=== PATIENT | female | born 1995 | race Two or more races ===

== ENCOUNTER 2025-08-20 09:39 | Outpatient (REF) | payer OTHER, SELFPAY ==
[2025-08-20 14:39] LABS: MANUAL DIFF FLAG NO
[2025-08-20 15:03] LABS: Hematocrit 36.9 % (37.0-47.0); Hemoglobin 12.1 g/dl (12.0-16.0); Imm Gran Abs Auto 0.02 X10*3/uL (0.00-0.03); Imm Gran Pct Auto 0.2 % (0.0-0.4); Lymphocytes Absolute Auto 2.5 X10*3/uL (1.2-4.9); Mean Corpuscular HGB Conc 32.8 g/dl (31.0-35.0); Mean Corpuscular Hemoglobin 29.3 pg (27.0-33.0); Mean Corpuscular Volume 89.3 fL (80.0-98.0); NRBC Abs Auto 0.000 X10*3/uL (0.0-0.012); NRBC Pct Auto 0.0 /100WBC (0.0-0.2); Platelet Count 492 X10*3/uL (160-400); Red Blood Count 4.13 X10*6/uL (4.20-5.50); White Blood Count 8.4 X10*3/uL (4.8-10.8)
[2025-08-20 15:20] LABS: Anion Gap 11 (12-20); Blood Urea Nitrogen 15 mg/dL (9-16); Calcium 9.0 mg/dL (8.4-10.2); Carbon Dioxide 26 mmol/L (22-29); Chloride 105 mmol/L (96-108); Cholesterol 154 mg/dL (<200); Estimated Glomerular Filt Rate > 60; HDL Cholesterol 49 mg/dL (>40); Potassium 4.2 mmol/L (3.3-5.1); Sodium 138 mmol/L (135-145); Triglycerides 101 mg/dL (<150)
[2025-08-21 13:10] LABS: HIV Num 1 0.04 S/CO (0.00-0.99); ~HepC Num1 0.09 S/CO (0.00-0.79); ~Hepatitis C Antibody Nonreactive (Nonreactive)
== END 2025-08-20 09:40 | disposition home or self-care (01) ==
LOC: HO.CHCLDS 09:39
DX: Z11.3 Encounter for screening for infections with a predominantly sexual mode of transmission (principal); Z11.4 Encounter for screening for human immunodeficiency virus [HIV]; Z11.59 Encounter for screening for other viral diseases; Z76.89 Persons encountering health services in other specified circumstances
CPT/HCPCS: 36415; 80048; 80061; 84443; 85025; 86592; 86803; 87389

== ENCOUNTER 2025-08-23 12:19 | Outpatient (REF) | payer OTHER, SELFPAY ==
--- NOTE | ~2025-08-23 | US_ITS ---
EXAMINATION: US PELVIS CLINICAL INFORMATION: AUB COMPARISON: None available. TECHNIQUE: Ultrasound of the pelvis is performed using both transabdominal and transvaginal transducers along with Doppler. Transvaginal imaging is performed due to inadequate visualization transabdominally. FINDINGS: Uterus: The uterus is anteverted and measures 9 x 4 x 4 cm. Volume: 106 cc. The double wall endometrial thickness is 14 mm. Normal echotexture. No solid or cystic lesion in the myometrium. Cervix is normal and endocervical canal is closed Adnexa: The ovaries are identified with flow on color Doppler interrogation.. No free fluid in the cul-de-sac. Right ovary measures 4 x 3 x 3 cm. Volume: 18 cc. Scattered follicles. There is a 1.5 cm mixed isoechoic abnormality. No flow on color Doppler interrogation. Left ovary measures 4 x 2 x 2 cm. Volume: 9 cc. Scattered follicles. US/US pelvic and transvaginal IMPRESSION: No ovarian torsion. No uterine fibroid. 14 mm thickened endometrial stripe. Correlated with menstrual cycle. 1.5 cm complex cyst, right ovary. Electronically signed by: Alexei Moreno MD 08/23/2025 01:12 PM EDT
--- OUTSIDE RECORDS SUMMARY | 2025-08-23 15:30 | XMS_ITS | Encounter Summary ---
Author Organization [employer] Address [address] [place] [address] 7t [place] [address] Care Team Providers Care Male Infertility Specialist Name Role Phone Mike Duff CNP Primary Care Provider [phone] Encounter Details Date Type Department Care Team ([facility] st Contact Info) Description 08/21/2025 Orders Only [facility] [address] [place], [place] [phone] Mike Duff CNP [address] [place], [place] [phone] Abnormal uterine bleeding (Primary Dx) Social History Tobacco Use Types Packs/Day Years Used Date Smoking Tobacco: Never Smokeless Tobacco: Never Alcohol Use Standard Drinks/Week Comments Never 0 (1 standard drink = 0.6 oz pur e alcohol) Depression Answer Date Recorded Patient Health Questionnaire-9 Score 1 07/13/2025 Patient Health Questionnaire-9 Score 1 07/13/2025 Last PHQ-9: Questionnaire Data Not on file 0 07/13/2025 Housing Stability Answer Date Recorded What is your housing situation today? I do not have housing (Staying with others, in a hotel, in a prison, living outside on the street, on a beach, in a car, or in a park 07/06/[address] you li ve. Do you have problems with any of the following? None of the above 07/06/2025 Food Insecurity Answer Date Recorded Within the past 12 months, y ou worried that your food would run out before you got money to buy more: Sometimes True 2024 Within the past 12 months,th e food you bought just didn't last and you didn't have enough money to get more: Sometimes True 07/06/2025 Transportation Answer Date Recorded In the past 12 months, has l ack of transportation kept you from medical appts, meetings, work or from getting things needed for daily living? No 07/06/2025 Utilities Answer Date Recorded In the past 12 months, has t he electric, gas, oil or water company threatened to shut off services in your home? No 07/06/2025 Depression Answer Date Recorded Patient Health Questionnaire-2 Score 0 07/13/2025 Internet Access Answer Date Recorded Internet Access Q1 Yes 07/06/2025 Internet Access Q2 Not on file 07/06/2025 Comments Unknown Sex and Gender Information Value Date Recorded Sex Assigned at Female 08/31/2022 10:39 AM EDT Legal Sex Female 10:39 AM EDT Gender Identity Female 08/31/2022 10:39 AM EDT Sexual Orientation Straight 08/31/2022 10 :39 AM EDT documented as of this encounter Plan of Treatment Upcoming Encounters Date Type Department Care Team (Late st Contact Info) Description 09/21/2025 8:45 AM EST Office Visit [facility]ULT DENTAL [address] [place] [address] Jaime Bo Scheduled Orders Name Type Priority Associated Diagnoses Orde r Schedule Iron And Total Iron Binding Capacity Lab Routine Abnormal uterine bleeding Expected: 08/21/2025, Expires: 08/21/2026 Ferritin Lab Routine Abnormal uterine bleeding Expected: 08/21/2025, Expires: 08/21/2026 documented as of this encounter Visit Diagnoses Diagnosis Abnormal uterine bleeding- Primary Unspecified disorder of menstruation and other abnormal bleeding from female genital tract documented in this encounter Additional Health Concerns Assessment Noted Time PHQ-9 Depression Total Score: 1 07/13/20 11:56 AM EDT documented as of this encounter Care Teams Male Infertility Specialist Relationship Specialty Start Date End Date Mike Duff CNP PCP - General Family Medicine 07/13/25 documented as of this encounter
--- OUTSIDE RECORDS SUMMARY | 2025-08-23 15:30 | XMS_ITS | Clinical Summary ---
Author Organization [employer] Address [address] [facility] 7t [place] [address] Care Team Providers Care Lever Operator Name Role Phone Mike Duff CNP Primary Care Provider [phone] Allergies No known active allergies Medications benzonatate (Tessalon) 200 MG capsule Take 200 mg by mouth every 8 (eight) hours if needed. 03/24/2019 Active lidocaine (Xylocaine) 2 % solution Gargle every eight hours as needed for sore throat. Do not use for more than 1 week. 03/24/2019 Active Active Problems No known active problems Encounters Date Type Department Care Team Description 08/21/2025 Results Follow-Up [facility] [address] [place] [address] Mike Duff CNP Lipid Panel, Standard, CBC auto differential, Basic Metabolic Panel, TSH W/Reflex to FT4 08/21/2025 Orders Only [facility] [address] [place] [address] Mike Duff CNP Abnormal uterine bleeding (Primary Dx) 08/15/2025 2:30 PM EDT Office Visit [facility] ADULT [facility] [address] [place] [address] Hugo Howard 07/20/2025 1:00 PM EDT Office Visit [facility] [address] [place] [address] Hugo Howard 07/20/2025 Telephone [facility] ADULT DENTAL [address] [place], [place] [phone] Jaime Bo 07/13/2025 10:45 AM EDT Office Visit [facility] [address] [place] [address] Mike Duff CNP Encounter to establish care (Primary Dx); Abnormal uterine bleeding; Chronic bilateral thoracic back pain; Encounter for screening for bacterial sexually transmitted infection; Dietary counseling; Exercise counseling; Class 3 severe obesity due to excess calories without serious comorbidity with body mass index (BMI) of 40.0 to 44.9 in adult 07/13/2025 Travel 07/06/2025 Telephone [facility] [address] [place] [address] Mike Dfuf CNP Care Coordination (PT1) 07/06/2025 Patient Outreach [facility] [address], [place] [phone] Narayan Lantigua MD Pre-visit Planning (SDOH screening positive and Tobacco screening negative) 07/03/2025 Telephone [facility] [address] [place] [address] Blanca Kuhn MA chart prep 06/14/2025 Telephone [facility] [address] [place] [address] Mike Duff CNP New Patient from Last 3 Months Immunizations Immunization Administration Dates Next Due Hep B, Unspecified 07/28/2017 MMR 07/28/2017 Tdap 12/29/2023,04/15/2022 Family History Medical History Relation Name Comments high blood pressure Father Relation Name Status Comments Father Social History Tobacco Use Types Packs/Day Years Used Date Smoking Tobacco: Never Smokeless Tobacco: Never Tobacco Cessation:Counseling Given: Not Answered Alcohol Use Standard Drinks/Week Comments Never 0 [...] with others, in a hotel, in a senior living, living outside on the street, on a [...] Q2 Not on file 07/06/2025 Comments Unknown Intention Date Recorded No desire to become (finding) 0 07/13/2025 Sex and Gender Information Value Date Recorded Sex Assigned at Female 08/31/2022 10:39 AM EDT Legal Sex Female 10:39 AM EDT Gender Identity Female 08/31/2022 10:39 AM EDT Sexual Orientation Straight 08/31/2022 10 :39 AM EDT Last Filed Vital Signs Vital Sign Reading Time Taken Comments Blood Pressure 105/74 08/15/2025 2:29 PM EDT Pulse 94 07/13/2025 10:13 AM EDT Temperature 36.7 C (98.1 F) 07/13/2025 10:13 AM EDT Respiratory Rate 12 07/13/2025 10:13 AM EDT Oxygen Saturation 98% 07/13/2025 10:13 AM EDT Inhaled Oxygen Concentration - - Weight 102 kg (224 lb) 07/13/2025 10:13 AM EDT Height 151.8 cm (4' 11.75 ) 07/13/2025 10:13 AM EDT Body Mass Index 44.11 07/13/2025 10:13 AM EDT Plan of Treatment Upcoming Encounters Date Type Department Care Team (Late st Contact Info) Description 09/21/2025 8:45 AM EST Office Visit [facility]ULT [facility] [address] [place] [address] Jaime Bo Health Maintenance Due Date Last Done Comments Dental Prophylaxis 1997 HPV Vaccines (1 - 3-dose series) 2012 Hepatitis B Vaccines (2 of 3 - 19+ 3-dose series) 08/25/2017 07/28/2017 Pap Smear 2018 COVID-19 Vaccine (4 - 2024-2 6 season) 2025 04/15/2022, 08/06/2021, 07/16/2021 Influenza Vaccine (#1) 2025 Dental Oral Exam 02/14/2026 08/15/2025 SDOH Screening 07/06/2026 07/06/2025 Alcohol/Substance Use Screening 07/13/2026 07/13/2025 Depression Screening 07/13/2026 07/13/2025, 07/13/2025 Disability Screening 07/13/2026 07/13/2025 Family Planning (PISQ) 07/13/2026 07/13/2025 Tobacco Screening 08/15/2026 08/15/2025 Dental X-Ray: Bitewings 08/16/2026 08/15/2025 Dental X-Ray: Full Mouth 08/16/2028 08/15/2025 Lipid Panel 08/20/2030 08/20/2025 DTaP/Tdap/Td Vaccines (3 - T d or Tdap) 12/29/2033 12/29/2023, 04/15/2022 Zoster Vaccines (1 of 2) 2047 RSV Patients and Patients Aged 60 years or older (1 - 1-dose 75+ series) 2072 HIV Screening Completed 08/20/2025 Hepatitis C Screening Completed 08/20/2025 HIB Vaccines Aged Out No longer eligi ble based on patient's age to complete this topic Hepatitis A Vaccines Aged Out No long er eligible based on patient's age to complete this topic IPV Vaccines Aged Out No longer eligi ble based on patient's age to complete this topic Meningococcal B Vaccine Aged Out No l onger eligible based on patient's age to complete this topic Meningococcal Vaccine Aged Out No santiago lauri eligible based on patient's age to complete this topic Pneumococcal Vaccine: Pediatrics (0 to 5 Years) and At-Risk Patients (6 to 49) Years Aged Out No longer eligible b ased on patient's age to complete this topic RSV under 20 months Aged Out No longe r eligible based on patient's age to complete this topic Rotavirus Vaccines Aged Out No longer eligible based on patient's age to complete this topic Procedures Procedure Name Priority Date/Time Associated Diagnosis Comments US PELVIS TRANSVAGINAL Routine 12:46 PM EDT Abnormal uterine bleeding RPR (MONITOR) W/REFL TITER Routine 08/20/2025 9:41 AM EDT Encounter for screening for bacterial sexually transmitted infection HEPATITIS C AB W/REFL TO HCV RNA, QN, PCR Routine 08/20/2025 9:41 AM EDT Encounter to establish care Encounter for screening for bacterial sexually transmitted infection HIV 1/2 ANTIGEN/ANTIBODY, FOURTH GENERATION W/RFL Routine 08/20/2025 9:41 AM EDT Encounter to establish care Encounter for screening for bacterial sexually transmitted infection TSH W/REFLEX TO FT4 Routine 08/20/2025 9 :41 AM EDT Encounter to establish care BASIC METABOLIC PANEL Routine 08/20/2025 9:41 AM EDT Encounter to establish care CBC WITH AUTO DIFFERENTIAL Routine 08/20/2025 9:41 AM EDT Encounter to establish care LIPID PANEL, STANDARD Routine 08/20/2025 9:41 AM EDT Encounter to establish care INTRAORAL - COMPLETE SERIES OF RADIOGRAPHIC IMAGES Routine 08/15/2025 2:30 PM EDT COMPREHENSIVE ORAL EVALUATION - NEW OR ESTABLISHED PATIENT Routine 08/15/2025 2:30 PM EDT 28 DO AMALGAM FILLING Routine 08/15/2025 12:00 AM EDT 31 MOB AMALGAM FILLING Routine 12:00 AM EDT 29 MOD AMALGAM FILLING Routine 10/15/202 5 12:00 AM EDT 21 DO AMALGAM FILLING Routine 08/15/2025 12:00 AM EDT 20 MOD AMALGAM FILLING Routine 12:00 AM EDT 19 CROWN - PORCELAIN/CERAMIC Routine 08/15/2025 12:00 AM EDT 18 MOB COMPOSITE FILLING Routine 08/15/2025 12:00 AM EDT 15 MODBL ONLAY - PORCELAIN/CERAMIC - 4 OR MORE SURFACES Routine 08/15/2025 12:00 AM EDT 13 MO COMPOSITE FILLING Routine 08/15/2025 12:00 AM EDT 12 DO COMPOSITE FILLING Routine 08/15/2025 12:00 AM EDT 10 M COMPOSITE FILLING Routine 12:00 AM EDT 9 D COMPOSITE FILLING Routine 08/15/2025 12:00 AM EDT 8 D COMPOSITE FILLING Routine 08/15/2025 12:00 AM EDT 5 MOD COMPOSITE FILLING Routine 08/15/2025 12:00 AM EDT 4 MO COMPOSITE FILLING Routine 12:00 AM EDT 30 PFM CROWN Routine 08/15/2025 12:00 AM EDT 30 ROOT CANAL Routine 08/15/2025 12:00 AM EDT 2 ROOT CANAL Routine 08/15/2025 12:00 AM EDT 2 MODBL ONLAY - PORCELAIN/CERAMIC - 4 OR MORE SURFACES Routine 08/15/2025 12:00 AM EDT INTRAORAL - PERIAPICAL FIRST RADIOGRAPHIC IMAGE Routine 07/20/2025 1:00 PM EDT 7 LIMITED ORAL EVALUATION - PROBLEM FOCUSED Routine 07/20/2025 1:00 PM EDT 7 MIFL RESIN-BASED COMPOSITE - 4 OR MORE SURFACES (ANTERIOR) Routine 07/20/2025 1:00 PM EDT from Last 3 Months Results * US Pelvis Transvaginal (08/23/2025 12:46 PM EDT) Anatomical Region Laterality Modality Pelvis Ultrasound 08/23/2025 12:4 6 PM EDT Narrative 08/23/2025 1:15 PM EDT [address] [address] Ultrasound Report Signed Patient: Samm Bacon MR#: [id number] 91 : 1995 Acct:[id number] Age/Sex: 29 / F ADM Date: 08/23/25 Loc: HO.US Attending Dr: Mike Duff PEDIATRIC OPHTHALMOLOGIST Ordering Physician: Mike Duff NP Date of Service: 08/23/25 Procedure(s): US pelvic and transvaginal Accession Number(s): [id number] cc: Mike Duff NP Reason for Exam: AUB EXAMINATION: US PELVIS CLINICAL INFORMATION: AUB COMPARISON: None available. TECHNIQUE: Ultrasound of the pelvis is performed using both transabdominal and transvaginal transducers along with Doppler. Transvaginal imaging is performed due to inadequate visualization transabdominally. FINDINGS: Uterus: The uterus is anteverted and measures 9 x 4 x 4 cm. Volume: 106 cc. The double wall endometrial thickness is 14 mm. Normal echotexture. No solid or cystic lesion in the myometrium. Cervix is normal and endocervical canal is closed Adnexa: The ovaries are identified with flow on color Doppler interrogation.. No free fluid in the cul-de-sac. Right ovary measures 4 x 3 x 3 cm. Volume: 18 cc. Scattered follicles. There is a 1.5 cm mixed isoechoic abnormality. No flow on color Doppler interrogation. Left ovary measures 4 x 2 x 2 cm. Volume: 9 cc. Scattered follicles. US/US pelvic and transvaginal IMPRESSION: No ovarian torsion. No uterine fibroid. 14 mm thickened endometrial stripe. Correlated with menstrual cycle. 1.5 cm complex cyst, right ovary. Electronically signed by: Alexei Moreno MD 08/23/2025 01:12 PM EDT Dictated By: Alexei Christina MD Signed By: <Electronically signed by Alexei Dickson MD in OV> 08/23/25 1312 DD/ 1246 TD/TT: 08/23/25 1258 Briquette Maker: Procedure Note Donotuseinterpreter, Image - 08/23/2025 [place] [address] Ultrasound Report Signed Patient: Samm BaconMR#: [id number] 91 : 1995Acct:[id number] Age/Sex: 29 / FADM Date: 08/23/25 Loc: HO.US Attending Dr: Mike Duff PEDIATRIC OPHTHALMOLOGIST Ordering Physician: Mike Duff NP Date of Service: 08/23/25 Procedure(s): US pelvic and transvaginal Accession Number(s): [id number] cc: Mike Duff NP Reason for Exam: AUB EXAMINATION: US PELVIS CLINICAL INFORMATION: AUB COMPARISON: None available. TECHNIQUE: Ultrasound of the pelvis is performed using both transabdominal and transvaginal transducers along with Doppler. Transvaginal imaging is performed due to inadequate visualization transabdominally. FINDINGS: Uterus: The uterus is anteverted and measures 9 x 4 x 4 cm. Volume: 106 cc. The double wall endometrial thickness is 14 mm. Normal echotexture. No solid or cystic lesion in the myometrium. Cervix is normal and endocervical canal is closed Adnexa: The ovaries are identified with flow on color Doppler interrogation.. No free fluid in the cul-de-sac. Right ovary measures 4 x 3 x 3 cm. Volume: 18 cc. Scattered follicles. There is a 1.5 cm mixed isoechoic abnormality. No flow on color Doppler interrogation. Left ovary measures 4 x 2 x 2 cm. Volume: 9 cc. Scattered follicles. US/US pelvic and transvaginal IMPRESSION: No ovarian torsion. No uterine fibroid. 14 mm thickened endometrial stripe. Correlated with menstrual cycle. 1.5 cm complex cyst, right ovary. Electronically signed by: Alexei Moreno MD 08/23/2025 01:12 PM EDT Dictated By: Alexei Christina MD Signed By: <Electronically signed by Alexei Dickson MDin OV> 08/23/25 1312 DD/ 1246 TD/TT: 08/23/25 1258 Briquette Maker: Mike Duff VISUAL EDUCATOR IMG US PROCEDURES Edited Result - Final * TSH W/Reflex to FT4 (08/20/2025 9:41 AM EDT) TSH reflex Free T4 1.78 0.32 - 4.0 uIU/mL [facility] Blood Venous blood specimen / Unknown 08/20/2025 9:41 AM EDT 08/20/2025 2:40 PM EDT Mike Duff [facility] BLOOD ORDERABLES Kortney l Result [facility] [address] [place] [address] [phone] * (ABNORMAL) CBC auto differential (08/20/2025 9:41 AM EDT) White Blood Count 8.4 4.8 - 10.8 X10*3/uL [facility] Red Blood Count 4.13(L) 4.20 - 5.50 X10*6/uL [facility] Hemoglobin 12.1 12.0 - 16.0 g/dl [facility] Hematocrit 36.9(L) 37.0 - 47.0 % [facility] Mean Corpuscular Volume 89.3 80.0 - 98.0 fL [facility] Mean Corpuscular Hemoglobin 29.3 27.0 - 33.0 pg [facility] Mean Corpuscular HGB Conc 32.8 31.0 - 35.0 g/dl [facility] Red Cell Distribution Width 12.2 11.0 - 16.0 % [facility] Platelet Count 492(H) 160 - 400 X10*3/uL [facility] Mean Platelet Volume 10.9 9.4 - 12.3 fL [facility] Neutrophils Percent Auto 62.0 45 - 73 % [facility] Imm Gran Pct Auto 0.2 0.0 - 0.4 % [facility] Lymphocytes Percent Auto 29.4 20 - 40 % [facility] Monocytes Percent Auto 4.2 2 - 11 % [facility] Eosinophils Percent Auto 3.2 0 - 4 % [facility] Basophils Percent Auto 1.0 0 - 2 % [facility] NRBC Pct Auto 0.0 0.0 - 0.2 /100WBC [facility] Neutrophils Absolute Auto 5.2 2.0 - 8.3 x10*3/uL [facility] Imm Gran Abs Auto 0.02 0.00 - 0.03 X10*3/uL [facility] Lymphocytes Absolute Auto 2.5 1.2 - 4.9 X10*3/uL [facility] Monocytes Absolute Auto 0.4 0.1 - 1.2 X10*3/uL [facility] Eosinophils Absolute Auto 0.3 0.0 - 0.4 X10*3/uL [facility] Basophils Absolute Auto 0.1 0.0 - 0.2 X10*3/uL [facility] NRBC Abs Auto 0.000 0.0 - 0.012 X10*3/uL [facility] Blood Venous blood specimen / Unknown 08/20/2025 9:41 AM EDT 08/20/2025 2:35 PM EDT [facility] LAB BLOOD ORDERABLES Kortney l Result Performing Organization Address [facility] de Phone Number [facility] [address] [place] [phone] * Hepatitis C Antibody with Reflex to HCV, RNA, Quantitative, Real-Time PCR (08/20/2025 9:41 AM EDT) Hepatitis C Antibody Nonreactive Nonreactive [facility] Comment:Antibodies to HCV no t detected; does not exclude early acuteHCV infection. Blood Venous blood specimen / Unknown 08/20/2025 9:41 AM EDT 08/20/2025 2:35 PM EDT [facility] LAB BLOOD ORDERABLES Kortney l Result Performing Organization Address [facility] Co de Phone Number [facility] [address] [place] [phone] [phone] * RPR (Monitor) with Reflex to??Titer (08/20/2025 9:41 AM EDT) RPR (Monitor) w/Refl Titer NON-REACTI VE NON-REACT ALIRIO [facility] Comment:THIS TEST WAS PERFOR MED AT:[employer] [place] [phone] GOMEZ MD Rapid Plasma Reagin Ab Titer TNP [facility] Blood Venous blood specimen / Unknown 08/20/2025 9:41 AM EDT 08/20/2025 2:35 PM EDT [facility] LAB BLOOD ORDERABLES Kortney l Result Performing Organization Address City/[facility]/ZIP Co de Phone Number [facility] [address] [place] [phone] * HIV-1/2 Antigen and Antibodies, Fourth Generation, with Reflexes (08/20/2025 9:41 AM EDT) Pathologist [facility] HIV AB/AG Nonreactive Nonreactive [facility] Comment:HIV-1 p24 Ag and/or HIV-1/HIV-2 Ab not detected.A test result that is nonreactive does not exclude thepossibility of exposure to or infection with HIV-1 and/orHIV-2. Nonreactive results in this assay for individualswith prior exposure to HIV-1 and/or HIV-2 may be due toantigen and antibody levels that are below the limit ofdetection of this assay.The [employer] HIV Ag/Ab Combo assay result andsupplemental assay results should be interpreted inconjunction with the patient's clinical presentation,history and other laboratory results. If the results areinconsistent with clinical evidence, additional testing issuggested to confirm the result. Blood Venous blood specimen / Unknown 08/20/2025 9:41 AM EDT 08/20/2025 2:35 PM EDT [facility] LAB BLOOD ORDERABLES Kortney l Result [facility] [address] [place] [phone] * Lipid Panel, Standard (08/20/2025 9:41 AM EDT) Triglycerides 101 <150 mg/dL [facility] Comment:Desirable Triglyceri de: less than 150 mg/dLBorderline High Triglyceride 150-199 mg/dLHigh Triglyceride: 200-499 mg/dLVery High Triglyceride: greater than or equal to 5OO mg/dL Cholesterol 154 <200 mg/dL [facility] Comment:Desirable Cholestero l: less than 200 mg/dLBorderline High Cholesterol: 200-239 mg/dLHigh Cholesterol: greater than 239 mg/dL LDL Cholesterol Calculated 85 <100 mg/dL [facility] Comment:Desirable LDL: less than 100 mg/dLNear Optimal/Above Optimal LDL: 110- 129 mg/dLBorderline High LDL: 130-159 mg/dLHigh LDL: 160-189 mg/dLVery High LDL: greater than or equal to 190 mg/dL HDL Cholesterol 49 >40 mg/dL [facility] Comment:Desirable HDL: great er than 40 mg/dL Note: This HDL assay may give artificially low results in patients with liver disease. Blood Venous blood specimen / Unknown 08/20/2025 9:41 AM EDT 08/20/2025 2:40 PM EDT [facility] VISUAL EDUCATOR LAB BLOOD ORDERABLES Kortney l Result [facility] [address] [place] [phone] * (ABNORMAL) Basic Metabolic Panel (08/20/2025 9:41 AM EDT) Sodium 138 135 - 145 mmol/L [facility] Potassium 4.2 3.3 - 5.1 mmol/L [facility] Chloride 105 96 - 108 mmol/L [facility] Carbon Dioxide 26 22 - 29 mmol/L [facility] Anion Gap 11(L) 12 - 20 [facility] Urea Nitrogen (BUN) 15 9 - 16 mg/dL [facility] Creatinine, Serum 0.58 0.5 - 1.4 mg/dL [facility] Estimated Glomerular Filt Rate >60 [facility] Comment:Chronic Kidney Disea se: Estimated GFR < 60 mL/min/[id number] Kidney Disease: Estimated GFR < 15 mL/min/1.73m2 Glucose 90 60 - 115 mg/dL [facility] Calcium 9.0 8.4 - 10.2 mg/dL [facility] Blood Venous blood specimen / Unknown 08/20/2025 9:41 AM EDT 08/20/2025 2:40 PM EDT Seanramona Duff [facility] BLOOD ORDERABLES Kortney acevedo Result [facility] [address] [place] [phone] from Last 3 Months Insurance [place] [id number] [facility] PART[facility] (MEDICAID) Care Teams Lever Operator Relationship Specialty Start Date End Date Mike Duff CNP PCP - General Family Medicine 07/13/25
--- OUTSIDE RECORDS SUMMARY | 2025-08-23 15:30 | XMS_ITS | Clinical Summary ---
Author Organization [facility] Address [address] [place] [address] Care Team Providers Care Janitor Helper Name Role Phone Unavailable Primary Care Provider Unavailabl e Allergies No known active allergies Medications benzonatate (TESSALON) 200 MG capsule Take 1 capsule (200 mg total) by mouth 3 times daily (every 8 hours) as needed for cough. 20 capsule 03/24/2019 Active lidocaine (XYLOCAINE) 2 % solution Gargle every eight hours as needed for sore throat. Do not use for more than 1 week. 120 mL 03/24/2019 Active Social History Tobacco Use Types Packs/Day Years Used Date Smoking Tobacco: Never Assessed Comments Unknown Sex and Gender Information Value Date Recorded Sex Assigned at Not on file Legal Sex Female 4:17 PM EDT Gender Identity Not on file Sexual Orientation Not on file Last Filed Vital Signs Vital Sign Reading Time Taken Comments Blood Pressure 130/63 03/24/2019 6:09 PM EDT Pulse 100 03/24/2019 6:09 PM EDT Temperature 36 C (96.8 F) 03/24/2019 6:09 PM EDT Respiratory Rate 16 03/24/2019 6:09 PM EDT Oxygen Saturation 100% 03/24/2019 6:09 PM EDT Inhaled Oxygen Concentration - - Weight - - Height - - Body Mass Index - - Plan of Treatment Health Maintenance Due Date Last Done Comments Hepatitis C Virus Screening 1997 HIV Screening 2010 DTaP/Tdap/Td Vaccines (1 - Tdap) 2016 Hepatitis B Vaccines (1 of 3 - 19+ 3-dose series) 2016 COVID-19 Vaccine (2023-2 5 season) 2025 HPV Vaccines (No Doses Required) Completed Pneumococcal Vaccine: Pediat juan (0-5 Years) and At-Risk Patients (6 to 49 Years) Aged Out No longer eligible b ased on patient's age to complete this topic
--- OUTSIDE RECORDS SUMMARY | 2025-08-23 15:30 | XMS_ITS | Encounter Summary ---
Author Organization [employer] Address [address] [place] [address] [place] [address] Care Team Providers Care Analog Device Designer Name Role Phone Mike Duff CNP Primary Care Provider [phone] Reason for Visit * Reason Onset Date Comments New Patient 06/14/2025 Encounter Details Date Type Department Care Team ([facility] st Contact Info) Description 06/14/2025 Telephone [facility] MED & PEDS [address] [place], [place] [phone] Mike Duff CNP [address] [place] [address] New Patient Social History Tobacco Use Types Packs/Day Years Used Date Smoking Tobacco: Never Assessed Comments Unknown Sex and Gender Information Value Date Recorded Sex Assigned at Female 08/31/2022 10:39 AM EDT Legal Sex Female 10:39 AM EDT Gender Identity Female 08/31/2022 10:39 AM EDT Sexual Orientation Straight 08/31/2022 10 :39 AM EDT documented as of this encounter Miscellaneous Notes * Telephone Encounter - Armida Paredes - 06/14/2025 3:47 PM EDT Outgoing call to patient to book New Patient appt. Patient booked for 07/13 with [facility] Reported : *[employer] advised caller to arrive 15 minutes early for the visit. Caller was also informed to notifythe clinic if the visit is no longer needed. No-shows will be placed at the bottom of the scheduling list. Appt reminder and sent via text and mail. documented in this encounter Plan of Treatment Upcoming Encounters Date Type Department Care Team (Late st Contact Info) Description 09/21/2025 8:45 AM EST Office Visit [facility] ADULT DENTAL [address] [place] [address] Jaime Bo documented as of this encounter Visit Diagnoses Not on filedocumented in this encounter Care Teams Analog Device Designer Relationship Specialty Start Date End Date Mike Duff CNP PCP - General Family Medicine 07/13/25 documented as of this encounter
--- OUTSIDE RECORDS SUMMARY | 2025-08-23 15:30 | XMS_ITS | Encounter Summary ---
Author Organization [employer] Address [address] [place] [address] 7 [place] [address] Care Team Providers Care Brazer Production Line Name Role Phone Mike Duff CNP Primary Care Provider [phone] Reason for Visit * Reason Onset Date Comments Results 08/21/2025 Encounter Details Date Type Department Care Team ([facility] Contact Info) Description 08/21/2025 Results Follow-Up [facility] MED & PEDS [address] [place], [place] [phone] Mike Duff CNP [address] [place] [address] Lipid Panel, Standard, CBC auto differential, Basic Metabolic Panel, TSH W/Reflex to FT4 Social History Tobacco Use Types Packs/Day Years [...] with others, in a hotel, in a detention, living outside on the street, on a [...] encounter Miscellaneous Notes * Telephone Encounter - Rosita Ramírez RN - 08/21/2025 1:46 PM EDT Called pt who reports pelvic ultrasound is scheduled for 08/23/25. Informed that labs shows possible anemia for which PCP ordered additional labs. Pt states she will get these done soon. Informed herthat cholesterol and thyroid levels normal. No further questions. * Telephone Encounter - Rosita Ramírez RN - 08/21/2025 1:43 PM EDT ----- Message from Mike Duff sent at 08/21/2025 11:27 AM EDT ----- Please call pt to remind her to complete her Pelvic US to further evaluate her abnormal uterine bleeding, her labs show possibility of anemia, I ordered more iron labs to further evaluate, she can complete these at any time. Thanks! ----- Message ----- From: Interface, Lab Results In Sent: 08/20/2025 3:03 PM EDT To: Mike Duff CNP * Result Encounter Note - Mike Duff CNP - 08/21/2025 11:27 AM EDT Please call pt to remind her to complete her Pelvic US to further evaluate her abnormal uterine bleeding, her labs show possibility of anemia, I ordered more iron labs to further evaluate, she can complete these at any time. Thanks! documented in this encounter Plan of Treatment Upcoming Encounters Date Type Department Care Team (Late st Contact Info) Description 09/21/2025 8:45 AM EST Office Visit [facility] ADULT DENTAL [address] [place] [address] Jaime Bo documented as of this encounter Visit Diagnoses Not on filedocumented in this encounter Additional Health Concerns Assessment Noted Time PHQ-9 Depression Total Score: 1 07/13/20 11:56 AM EDT documented as of this encounter Care Teams Brazer Production Line Relationship Specialty Start Date End Date Mike Duff CNP PCP - General Family Medicine 07/13/25 documented as of this encounter
--- OUTSIDE RECORDS SUMMARY | 2025-08-23 15:30 | XMS_ITS | Encounter Summary ---
Author Organization [email or web address] Address [address] [place] [address] Care Team Providers Care Continuous Improvement Engineer Name Role Phone Mike Duff CNP Primary Care Provider [phone] Encounter Details Date Type Department Care Team (Late st Contact Info) Description 07/20/2025 Telephone [facility] ADULT DENTAL [address] [place], [place] [phone] Jaime Bo Social History Tobacco Use Types Packs/Day Years [...] with others, in a hotel, in a alf, living outside on the street, on a [...] encounter Miscellaneous Notes * Telephone Encounter - Carmen Blackburn - 07/20/2025 8:35 AM EDT Unable to post coverage documented in this encounter Plan of Treatment Upcoming Encounters Date Type Department Care Team (Late st Contact Info) Description 09/21/2025 8:45 AM EST Office Visit [facility] ADULT DENTAL [address] [place] [address] Jaime Bo documented as of this encounter Visit Diagnoses Not on filedocumented in this encounter Additional Health Concerns Assessment Noted Time PHQ-9 Depression Total Score: 1 07/13/20 25 11:56 AM EDT documented as of this encounter Care Teams Continuous Improvement Engineer Relationship Specialty Start Date End Date Mike uDff CNP PCP - General Family Medicine 07/13/25 documented as of this encounter
--- OUTSIDE RECORDS SUMMARY | 2025-08-23 15:30 | XMS_ITS | Clinical Summary ---
Author Organization [employer] [facility] it Address [address] [place] [address] Care Team Providers Care Cold Molding Press Operator Name Role Phone Unavailable Primary Care Provider Unavailabl e Social History Tobacco Use Types Packs/Day Years Used Date Smoking Tobacco: Never Assessed Comments Unknown Sex and Gender Information Value Date Recorded Sex Assigned at Not on file Legal Sex Female 5:35 PM EST Gender Identity Not on file Sexual Orientation Not on file Plan of Treatment Health Maintenance Due Date Last Done Comments DTaP,Tdap,and Td Vaccines (1 - Tdap) 2016 Hepatitis B Vaccines (1 of 3 - 19+ 3-dose series) 2016 Cervical Cancer Screening: P ap Smear 2018 Depression Screening 11/01/2024 HPV Vaccines (1 - 3-dose SCD M series) 2024 COVID-19 Vaccine ( - 2023-2 5 season) 2025 Influenza Vaccine (#1) 2025 RSV Immunization Adult Patie nts (1 - 1-dose 75+ series) 2072 HIB Vaccines Aged Out No longer eligi ble based on patient's age to complete this topic Hepatitis A Vaccines Aged Out No long er eligible based on patient's age to complete this topic IPV Vaccines Aged Out No longer eligi ble based on patient's age to complete this topic MMR Vaccines Aged Out No longer eligi ble based on patient's age to complete this topic Meningococcal ACWY Vaccine Aged Out N o longer eligible based on patient's age to complete this topic Meningococcal B Vaccine Aged Out No l onger eligible based on patient's age to complete this topic Pneumococcal Vaccine: Pediat rics (0 to 5 Years) and At-Risk Patients (6 to 49 Years) Aged Out No longer eligible b ased on patient's age to complete this topic RSV Immunization Patients Un coby 20 months Aged Out No longer eligible b ased on patient's age to complete this topic Varicella Vaccines Aged Out No longer eligible based on patient's age to complete this topic
== END 2025-08-23 12:20 | disposition home or self-care (01) ==
LOC: HO.US 12:19
DX: N93.9 Abnormal uterine and vaginal bleeding, unspecified (principal)
CPT/HCPCS: 76830; 76856

== ENCOUNTER → 2025-08-23 12:23 | Outpatient (BNV) | payer OTHER, SELFPAY | PROVIDERS: Visit Provider Radiology Diagnostic Radiology | DX: N83.201 Unspecified ovarian cyst, right side (principal); N93.9 Abnormal uterine and vaginal bleeding, unspecified | CPT/HCPCS: 76830; 76856 ==

== ENCOUNTER 2025-08-28 09:56 | Outpatient (REF) | payer OTHER, SELFPAY ==
--- OUTSIDE RECORDS SUMMARY | 2025-08-28 11:43 | XMS_ITS | Clinical Summary ---
Author Organization [employer] Address [address] [place] [address] Care Team Providers Care Planner Intern Name Role Phone Mike Duff CNP Primary Care Provider [phone] [phone] Allergies No known active allergies Medications benzonatate (Tessalon) 200 MG capsule Take 200 mg by mouth every 8 (eight) hours if needed. 03/24/2019 Active lidocaine (Xylocaine) 2 % solution Gargle every eight hours as needed for sore throat. Do not use for more than 1 week. 03/24/2019 Active Active Problems No known active problems Encounters Date Type Department Care Team Description 08/27/2025 Telephone [facility] MEDICINE [address] [place], [place] [phone] Mike Duff CNP call back requested 08/21/2025 Results Follow-Up [facility] MED & PEDS [address] [place] [address] Mike Duff CNP Lipid Panel, Standard, CBC auto differential, Basic Metabolic Panel, Additional followed-up results: 2 08/21/2025 Orders Only [facility] MED & PEDS [address] [place] [address] Mike Duff CNP Abnormal uterine bleeding (Primary Dx) 08/15/2025 2:30 PM EDT Office Visit [facility] ADULT DENTAL [address] [place] [address] Hugo Howard 07/20/2025 1:00 PM EDT Office Visit [facility] ADULT DENTAL [address] [place] [address] Hugo Howard 07/20/2025 Telephone [facility] ADULT DENTAL [address] [place] [address] Jaime Bo 07/13/2025 10:45 AM EDT Office Visit [facility] MED & PEDS [address] [place] [address] Mike Duff CNP Encounter to establish care (Primary Dx); Abnormal uterine bleeding; Chronic bilateral thoracic back pain; Encounter for screening for bacterial sexually transmitted infection; Dietary counseling; Exercise counseling; Class 3 severe obesity due to excess calories without serious comorbidity with body mass index (BMI) of 40.0 to 44.9 in adult 07/13/2025 Travel 07/06/2025 Telephone [facility] MED & PEDS [address] [place] [address] Mike Duff CNP Care Coordination (PT1) 07/06/2025 Patient Outreach [facility] MEDICINE [address] [place] [address] Narayan Lantigua MD Pre-visit Planning (SDOH screening positive and Tobacco screening negative) 07/03/2025 Telephone [facility] MED & PEDS [address] [place] [address] Blanca Kuhn MA chart prep 06/14/2025 Telephone [facility] MED & PEDS [address] [place] [address] Mike Duff CNP New Patient from Last [...] with others, in a hotel, in a long-term, living outside on the street, on a [...] Description 09/21/2025 8:45 AM EST Office Visit [facility] ADULT DENTAL [address] [place] [address] Jaime Bo Health Maintenance Due Date Last [...] AM EDT 29 MOD AMALGAM FILLING Routine 12:00 AM EDT 21 DO AMALGAM FILLING [...] PM EDT Narrative 08/23/2025 1:15 PM EDT [address] [address] Ultrasound Report Signed Patient: Samm Bacon MR#: [id number] [birth year] : 1995 Acct:[id number] Age/Sex: 29 / F ADM Date: 08/23/25 Loc: HO.US Attending Dr: Mike Duff NP Ordering Physician: Mike Duff NP Date of Service: 08/23/25 Procedure(s): US pelvic and transvaginal Accession Number(s): [id number] cc: Mike Duff NP Reason for Exam: [...] 08/23/25 1312 DD/ 1246 TD/TT: 08/23/25 1258 Associate Professor Of Church Music: Procedure Note Donotuseinterpreter, Image - 08/23/20[address] [place] [address] Ultrasound Report Signed Patient: Samm Bacon#: [id number] [birth year] : 1995Acct:[id number] Age/Sex: 29 / FADM Date: 08/23/25 Loc: HO.US Attending Dr: Mike Duff PAYROLL LEAD Ordering Physician: Mike Duff NP Date of Service: 08/23/25 Procedure(s): US pelvic and transvaginal Accession Number(s): [id number] cc: Mike Duff NP Reason for Exam: [...] 08/23/25 1312 DD/ 1246 TD/TT: 08/23/25 1258 Associate Professor Of Church Music: us Mike Duff RESEARCH ADMINISTRATOR IMG US PROCEDURES Edited Result - Final * TSH W/Reflex to FT4 (08/20/2025 9:41 AM EDT) TSH reflex Free T4 1.78 0.32 - 4.0 uIU/mL [facility] Blood Venous blood specimen / Unknown 08/20/2025 9:41 AM EDT 08/20/2025 2:40 PM EDT [facility] LAB BLOOD ORDERABLES Kortney l Result [facility] [address] [place] [address] [phone] * (ABNORMAL) CBC auto differential (08/20/2025 9:41 AM EDT) Pathologist [facility] White Blood Count 8.4 4.8 - 10.8 X10*3/uL [facility] Red Blood Count 4.13(L) 4.20 - 5.50 X10*6/uL [facility] Hemoglobin 12.1 12.0 - 16.0 g/dl [facility] Hematocrit 36.9(L) 37.0 - 47.0 % [facility] Mean Corpuscular Volume 89.3 80.0 - 98.0 fL [facility] Mean Corpuscular Hemoglobin 29.3 27.0 - 33.0 pg [facility] Mean Corpuscular HGB Conc 32.8 31.0 - 35.0 g/dl [facility] Red Cell Distribution Width 12.2 11.0 - 16.0 % [facility] Platelet Count 492(H) 160 - 400 X10*3/uL [facility] Mean Platelet Volume 10.9 9.4 - 12.3 fL [facility] Neutrophils Percent Auto 62.0 45 - 73 % [facility] Imm Gran Pct Auto 0.2 0.0 - 0.4 % [facility] Lymphocytes Percent Auto 29.4 20 - 40 % [facility] Monocytes Percent Auto 4.2 2 - 11 % [facility] Eosinophils Percent Auto 3.2 0 - 4 % [facility] Basophils Percent Auto 1.0 0 - 2 % [facility] NRBC Pct Auto 0.0 0.0 - 0.2 /100WBC [facility] Neutrophils Absolute Auto 5.2 2.0 - 8.3 x10*3/uL [facility] Imm Gran Abs Auto 0.02 0.00 - 0.03 X10*3/uL [facility] Lymphocytes Absolute Auto 2.5 1.2 - 4.9 X10*3/uL [facility] Monocytes Absolute Auto 0.4 0.1 - 1.2 X10*3/uL [facility] Eosinophils Absolute Auto 0.3 0.0 - 0.4 X10*3/uL [facility] Basophils Absolute Auto 0.1 0.0 - 0.2 X10*3/uL [facility] NRBC Abs Auto 0.000 0.0 - 0.012 X10*3/uL [facility] Blood Venous blood specimen / Unknown 08/20/2025 9:41 AM EDT 08/20/2025 2:35 PM EDT [facility] LAB BLOOD ORDERABLES Kortney l Result Performing Organization Address [facility] Co de Phone Number [facility] [address] [place] [phone] * Hepatitis C Antibody with Reflex to HCV, RNA, Quantitative, Real-Time PCR (08/20/2025 9:41 AM EDT) Hepatitis C Antibody Nonreactive Nonreactive [facility] Comment:Antibodies to HCV no t detected; does not exclude early acuteHCV infection. Blood Venous blood specimen / Unknown 08/20/2025 9:41 AM EDT 08/20/2025 2:35 PM EDT [facility] LAB BLOOD ORDERABLES Kortney l Result Performing Organization Address [facility]/ZIP Co de Phone Number [facility] [address] [place] [phone] * RPR (Monitor) with Reflex to??Titer (08/20/2025 9:41 AM EDT) RPR (Monitor) w/Refl Titer NON-REACTI VE NON-REACT ALIRIO [facility] Comment:THIS TEST WAS PERFOR MED AT:[facility] [place] [phone] GOMEZ MD Rapid Plasma Reagin Ab Titer TNP [facility] Blood Venous blood specimen / Unknown 08/20/2025 9:41 AM EDT 08/20/2025 2:35 PM EDT [facility] LAB BLOOD ORDERABLES Kortney l Result [facility] [address] [place] [address] [phone] * HIV-1/2 Antigen and Antibodies, Fourth Generation, with Reflexes (08/20/2025 9:41 AM EDT) HIV AB/AG Nonreactive Nonreactive [facility] Comment:HIV-1 p24 Ag and/or HIV-1/HIV-2 Ab not detected.A test result that is nonreactive does not exclude thepossibility of exposure to or infection with HIV-1 and/orHIV-2. Nonreactive results in this assay for individualswith prior exposure to HIV-1 and/or HIV-2 may be due toantigen and antibody levels that are below the limit ofdetection of this assay.The [employer] HIV Ag/Ab Combo assay result andsupplemental assay results should be interpreted inconjunction with the patient's clinical presentation,history and other laboratory results. If the results areinconsistent with clinical evidence, additional testing issuggested to confirm the result. Blood Venous blood specimen / Unknown 08/20/2025 9:41 AM EDT 08/20/2025 2:35 PM EDT [facility] LAB BLOOD ORDERABLES Kortney l Result Performing Organization Address [facility] Co de Phone Number [facility] [address] [place] [address] [phone] * Lipid Panel, Standard (08/20/2025 9:41 AM EDT) Triglycerides 101 <150 mg/dL [facility] Comment:Desirable Triglyceri de: less than 150 mg/dLBorderline High Triglyceride 150-199 mg/dLHigh Triglyceride: 200-499 mg/dLVery High Triglyceride: greater than or equal to 5OO mg/dL Cholesterol 154 <200 mg/dL [facility] Comment:Desirable Cholestero l: less than 200 mg/dLBorderline High Cholesterol: 200-239 mg/dLHigh Cholesterol: greater than 239 mg/dL LDL Cholesterol Calculated 85 <100 mg/dL [facility] Comment:Desirable LDL: less than 100 mg/dLNear Optimal/Above Optimal LDL: 110- 129 mg/dLBorderline High LDL: 130-159 mg/dLHigh LDL: 160-189 mg/dLVery High LDL: greater than or equal to 190 mg/dL HDL Cholesterol 49 >40 mg/dL [facility] Comment:Desirable HDL: great er than 40 mg/dL Note: This HDL assay may give artificially low results in patients with liver disease. Blood Venous blood specimen / Unknown 08/20/2025 9:41 AM EDT 08/20/2025 2:40 PM EDT [facility] LAB BLOOD ORDERABLES Kortney l Result Performing Organization Address [facility]/ZIP Co de Phone Number [facility] [address] [place] [address] [phone] * (ABNORMAL) Basic Metabolic Panel (08/20/2025 9:41 AM EDT) Sodium 138 135 - 145 mmol/L [facility] Potassium 4.2 3.3 - 5.1 mmol/L [facility] Chloride 105 96 - 108 mmol/L [facility] Carbon Dioxide 26 22 - 29 mmol/L [facility] Anion Gap 11(L) 12 - 20 [facility] Urea Nitrogen (BUN) 15 9 - 16 mg/dL [facility] Creatinine, Serum 0.58 0.5 - 1.4 mg/dL [facility] Estimated Glomerular Filt Rate >60 [facility] Comment:Chronic Kidney Disea se: Estimated GFR < 60 mL/min/1.10g1Cbhmte Kidney Disease: Estimated GFR < 15 mL/min/1.73m2 Glucose 90 60 - 115 mg/dL [facility] Calcium 9.0 8.4 - 10.2 mg/dL [facility] Blood Venous blood specimen / Unknown 08/20/2025 9:41 AM EDT 08/20/2025 2:40 PM EDT [facility] LAB BLOOD ORDERABLES Kortney l Result [facility] [address] [place] [address] [phone] from Last 3 Months Insurance [place] [id number] [place] [phone] [facility] PART[facility] (MEDICAID) [place] [id number] Care Teams Planner Intern Relationship Specialty Start Date End Date Mike Duff CNP PCP - General Family Medicine 07/13/25
--- OUTSIDE RECORDS SUMMARY | 2025-08-28 11:43 | XMS_ITS | Clinical Summary ---
Author Organization [employer] [facility] it Address [address] [place] [address] Care Team Providers Care Analysis Evaluator Name Role Phone Unavailable Primary Care Provider [...]
--- OUTSIDE RECORDS SUMMARY | 2025-08-28 11:43 | XMS_ITS | Encounter Summary ---
Author Organization [employer] Address [address] [place] [address] 7 [place] [address] Care Team Providers Care Platform Operations Director Name Role Phone Mike Duff CNP Primary Care Provider [phone] Reason for Referral * Consultation (Routine) - Pending Review Specialty Diagnoses / Procedures Referred By Lissette carey Referred To Contact Obstetrics and Gynecology Diagnoses Abnormal uterine bleeding Complex cyst of right ovary Mike Duff CNP [address] [place] [address] Phone: tel: fax: Referral ID Status Reason Start Date Expiration Date Visits Requested Visits Authorized [id number] Pending Review Specialty Services Required 08/27/2026 1 1 Reason for Visit * Reason Onset Date Comments Results 08/21/2025 Encounter Details Date Type Department Care Team ([facility] st Contact Info) Description 08/21/2025 Results Follow-Up [facility] [address] [place] [address] Mike Duff CNP [address], [place] [phone] Lipid Panel, Standard, CBC auto differential, Basic Metabolic Panel, Additional followed-up results: 2 Social History Tobacco Use Types Packs/Day Years [...] with others, in a hotel, in a group home, living outside on the street, on a [...] as of this encounter Miscellaneous Notes * Result Encounter Note - Mike Duff CNP - 08/27/2025 10:29 AM EDT All set, referral placed. Thanks! * Telephone Encounter - Camilla Dennis RN - 08/25/2025 10:09 AM EDT TC placed to pt and the message below was discussed, ensured pt that at this time cyst is likey benign meaning no cancerous. Patient stats that this is painful and she is in agreement for further evaluation will send PCP message to initiate referral. ----- Message from Mike Duff sent at 08/24/2025 10:12 AM EDT ----- Please call patient to let her know that her Pelvic US showed a complex cyst on her R ovary, this is likely benign. This may be the cause for her ongoing symptoms, if she would like to have this further evaluated and/or removed I can refer her to [facility]. Thank you! ----- Message ----- From: Reji Martinez Results In Sent: 08/23/2025 1:15 PM EDT To: Mike Duff CNP * Result Encounter Note - Mike Duff CNP - 08/24/2025 10:12 AM EDT Please call patient to let her know that her Pelvic US showed a complex cyst on her R ovary, this is likely benign. This may be the cause for her ongoing symptoms, if she would like to have this further evaluated and/or removed I can refer her to [facility]. Thank you! * Telephone Encounter - Rosita Ramírez RN [...] Description 09/21/2025 8:45 AM EST Office Visit [facility] [address] [place] [address] Jaime Bo Scheduled Referrals Name Type Priority Associated Diagnoses Order Schedule Referral to Obstetrics / Gynecology Outpatient Referral Routine Abnormal uterine bleeding Complex cyst of right ovary Expected: 08/27/2025 (Approximate), Expires: 08/27/2026 documented as of this encounter Visit Diagnoses Diagnosis Abnormal uterine bleeding- Primary Unspecified disorder of menstruation and other abnormal bleeding from female genital tract Complex cyst of right ovary documented in this encounter Additional Health Concerns Assessment Noted Time PHQ-9 Depression Total Score: 1 07/13/20 11:56 AM EDT documented as of this encounter Care Teams Platform Operations Director Relationship Specialty Start Date End Date Mike Duff CNP PCP - General Family Medicine 07/13/25 documented as of this encounter
--- OUTSIDE RECORDS SUMMARY | 2025-08-28 11:43 | XMS_ITS | Encounter Summary ---
Author Organization [employer] Address [address] [place] [address] Care Team Providers Care Dredge Boat Engineer Name Role Phone Mike Duff CNP Primary Care Provider [phone] Encounter Details Date Type Department Care Team (Late st Contact Info) Description 07/20/2025 Telephone [facility] ADULT D[facility] [address] [place], [place] [phone] Jaime Bo Social History Tobacco Use Types [...] with others, in a hotel, in a custodial, living outside on the street, on a [...] Description 09/21/2025 8:45 AM EST Office Visit [facility] [address] [place] [address] Jaime Bo documented as of this encounter Visit Diagnoses Not on filedocumented in this encounter Additional Health Concerns Assessment Noted Time PHQ-9 Depression Total Score: 1 07/13/20 25 11:56 AM EDT documented as of this encounter Care Teams Dredge Boat Engineer Relationship Specialty Start Date End Date Mike Duff CNP PCP - General Family Medicine 07/13/25 documented as of this encounter
--- OUTSIDE RECORDS SUMMARY | 2025-08-28 11:44 | XMS_ITS | Clinical Summary ---
Author Organization [facility] Address [address] [place] [address] Care Team Providers Care Mayonnaise Mixer Name Role Phone Unavailable Primary Care Provider [...]
--- OUTSIDE RECORDS SUMMARY | 2025-08-28 11:44 | XMS_ITS | Encounter Summary ---
Author Organization [email or web address] Address [address] [address] [place] [address] Care Team Providers Care Air Quality Manager Name Role Phone Mike Duff CNP Primary Care Provider [phone] Reason for Visit * Reason Onset Date Comments call back requested 08/27/2025 Encounter Details Date Type Department Care Team (Late st Contact Info) Description 08/27/2025 Telephone [facility] [address] [place] [address] Mike Duff CNP [address] [place] [phone] call back requested Social History Tobacco Use Types Packs/Day Years [...] others, in a hotel, in a senior care, living outside on the street, on a [...] encounter Miscellaneous Notes * Telephone Encounter - Venessa Mcknight RN - 08/27/2025 12:17 PM EDT Called pt regarding message, spoke to pt. Reviewed the results of the U/S Pelvis, and the message from her PCP regarding the results. Pt is concerned and again told her that cysts are fairly common and usually harmless. Pt still having mild symptoms but denies severe pain or bleeding at this time. Advised referral to [facility] has been sent and she will get an appointment. Advised the QUALITY IMPROVEMENT ENGINEER will do a full exam and talk to her about her options. Pt understands and agrees with plan. * Telephone Encounter - Sheryl Cameron - 08/27/2025 9:08 AM EDT Tc from requesting a call back regarding US pelvis results. PCP DR. Duff documented in this encounter Plan of Treatment Upcoming Encounters Date Type Department Care Team (Late st Contact Info) Description 09/21/2025 8:45 AM EST Office Visit [facility] AD[facility] DENTAL [address] [facility] [place] [place] [address] Jaime Bo documented as of this encounter Visit Diagnoses Not on filedocumented in this encounter Additional Health Concerns Assessment Noted Time PHQ-9 Depression Total Score: 1 07/13/20 11:56 AM EDT documented as of this encounter Care Teams Air Quality Manager Relationship Specialty Start Date End Date Mike Duff CNP PCP - General Family Medicine 07/13/25 documented as of this encounter
--- OUTSIDE RECORDS SUMMARY | 2025-08-28 11:44 | XMS_ITS | Encounter Summary ---
Author Organization [employer] Address [address] [place] [address] [place] [address] Care Team Providers Care Catering And Events Manager Name Role Phone Mike Duff CNP Primary Care Provider [phone] Reason for Visit * Reason Onset Date Comments New Patient 06/14/2025 Encounter Details Date Type Department Care Team ([facility] st Contact Info) Description 06/14/2025 Telephone [facility] [address] [place], [place] [phone] Mike Duff CNP [address] [place] [address] New Patient Social History Tobacco Use Types [...] 07/13 with [facility] Reported : *Diesel Engine Tester advised caller to arrive 15 minutes early [...] Description 09/21/2025 8:45 AM EST Office Visit [facility] ADULT DENTAL [address] [place] [address] Jaime Bo documented as of this encounter Visit Diagnoses Not on filedocumented in this encounter Care Teams Catering And Events Manager Relationship Specialty Start Date End Date Mike Duff CNP PCP - General Family Medicine 07/13/25 documented as of this encounter
[2025-08-28 14:45] LABS: Iron 127 mcg/dL (30-160); Percent Iron Saturation 36 % (15-50); Total Iron Binding Capacity 352 mcg/dL (228-428); Unsaturated Iron Binding 225 ug/dL
[2025-08-28 15:01] LABS: Ferritin 56 ng/mL (10-122)
== END 2025-08-28 09:57 | disposition home or self-care (01) ==
LOC: HO.CHCLDS 09:56
DX: N93.9 Abnormal uterine and vaginal bleeding, unspecified (principal)
CPT/HCPCS: 36415; 82728; 83540

== ENCOUNTER 2025-08-30 10:21 | Outpatient (REF) | payer OTHER, SELFPAY ==
--- NOTE | ~2025-08-30 | XR_ITS ---
EXAMINATION: XR THORACIC SPINE CLINICAL INFORMATION: chronic thoracic back pain COMPARISON: None available. TECHNIQUE: AP lateral and swimmer's projection. FINDINGS: S-shaped curvature of the thoracolumbar spine. Mild multilevel marginal osteophyte formation and endplate sclerosis. No acute cortical disruption or gross malalignment. No lytic or blastic lesions. XR/XR thoracic spine 3V IMPRESSION: Scoliosis and spondylosis, mild to moderate. Electronically signed by: Alexei Moreno MD 08/30/2025 10:56 AM EDT
--- OUTSIDE RECORDS SUMMARY | 2025-08-30 12:34 | XMS_ITS | Encounter Summary ---
Author Organization [employer] Address [address] [facility] [address] [address] [facility] [place] [address] Care Team Providers Care Blanket Folder Name Role Phone Mike Duff CNP Primary Care Provider [phone] Encounter Details Date Type Department Care Team (Late st Contact Info) Description 07/20/2025 Telephone [facility] [address] [place], [place] [phone] Jaime Bo Social History Tobacco Use Types [...] with others, in a hotel, in a assisted, living outside on the street, on a [...] Care Team (Late st Contact Info) Description 09/12/2025 9:45 AM EST Office Visit [facility] [address] [place] [address] Mike Duff CNP [address] [place] [address] 09/21/2025 8:45 AM EST Office Visit [facility] [address] [place] [address] Jaime Bo documented as of this encounter Visit Diagnoses Not on filedocumented in this encounter Additional Health Concerns Assessment Noted Time PHQ-9 Depression Total Score: 1 07/13/20 11:56 AM EDT documented as of this encounter Care Teams Blanket Folder Relationship Specialty Start Date End Date Mike Duff CNP PCP - General Family Medicine 07/13/25 documented as of this encounter
--- OUTSIDE RECORDS SUMMARY | 2025-08-30 12:34 | XMS_ITS | Clinical Summary ---
Author Organization [employer] Address [address] [facility] 7t [place] [address] Care Team Providers Care Spiral Binder Name Role Phone Mike Duff CNP Primary Care Provider [phone] Allergies No known active allergies Medications benzonatate (Tessalon) 200 MG capsule Take 200 mg by mouth every 8 (eight) hours if needed. 03/24/2019 Active lidocaine (Xylocaine) 2 % solution Gargle every eight hours as needed for sore throat. Do not use for more than 1 week. 03/24/2019 Active Active Problems No known active problems Encounters Date Type Department Care Team Description 08/28/2025 Travel 08/27/2025 Telephone [facility] MEDICINE [address] [place] [address] Mike Duff CNP call back requested 08/21/2025 Results Follow-Up [facility] [address] [place] [address] Mike Duff CNP Lipid Panel, Standard, CBC auto differential, Basic Metabolic Panel, Additional followed-up results: 2 08/21/2025 Orders Only [facility] [address] [place] [address] Mike Duff CNP Abnormal uterine bleeding (Primary Dx) 08/15/2025 2:30 PM EDT Office Visit [facility] ADULT DENTAL [address] [place] [address] Hugo Howard 07/20/2025 1:00 PM EDT Office Visit [facility] [address] [place] [address] Hugo Howard 07/20/2025 Telephone [facility] ADULT DENTAL [address] [place] [address] Jaime Bo 07/13/2025 10:45 AM EDT Office Visit [facility] [address] [place] [address] Mike Duff CNP Encounter to establish care (Primary Dx); Abnormal uterine bleeding; Chronic bilateral thoracic back pain; Encounter for screening for bacterial sexually transmitted infection; Dietary counseling; Exercise counseling; Class 3 severe obesity due to excess calories without serious comorbidity with body mass index (BMI) of 40.0 to 44.9 in adult 07/13/2025 Travel 07/06/2025 Telephone [facility] [address] [place] [address] Mike Duff CNP Care Coordination (PT1) 07/06/2025 Patient Outreach [facility] [address] [place] [address] Narayan Lantigua MD Pre-visit Planning (SDOH screening positive and Tobacco screening negative) 07/03/2025 Telephone [facility] [address] [place] [address] Blanca Kuhn MA chart prep 06/14/2025 Telephone [facility] [address] [place] [address] Mike Duff CNP New Patient from Last [...] with others, in a hotel, in a chcf, living outside on the street, on a [...] Upcoming Encounters Date Type Department Care Team ([facility] st Contact Info) Description 09/12/2025 9:45 AM EST Office Visit [facility] [address] [place] [address] Mike Duff, VENEER PRODUCTION MACHINE OPERATOR [address] [place] [address] 09/21/2025 8:45 AM EST Office Visit [facility] AD[facility] [address] [place] [address] Jaime Bo Health Maintenance Due Date Last [...] Procedure Name Priority Date/Time Associated Diagnosis Comments XR THORACIC SPINE 3 VIEWS Routine 08/30/2025 10:35 AM EDT Chronic bilateral thoracic back pain FERRITIN Routine 08/28/2025 9:58 AM EDT Abnormal uterine bleeding IRON AND TOTAL IRON BINDING CAPACITY Routine 08/28/2025 9:58 AM EDT Abnormal uterine bleeding US PELVIS TRANSVAGINAL Routine 12:46 PM EDT [...] EDT from Last 3 Months Results * XR Thoracic Spine 3 Views (08/30/2025 10:35 AM EDT) Anatomical Region Laterality Modality Spine, T-spine Radiographic Lizzy ging 08/30/2025 10:3 5 AM EDT Narrative 08/30/2025 10:59 AM EDT [place] [address] XRay Report Signed Patient: Samm Bacon MR#: [id number] 91 : 1995 Acct:[id number] Age/Sex: 29 / F ADM Date: 08/30/25 Loc: HUY Attending Dr: Mike Duff HELICOPTER DISPATCHER Ordering Physician: Mike Duff NP Date of Service: 08/30/25 Procedure(s): XR thoracic spine 3V Accession Number(s): [id number] cc: Mike Duff NP Reason for Exam: chronic thoracic back pain EXAMINATION: XR THORACIC SPINE CLINICAL INFORMATION: chronic thoracic back pain COMPARISON: None available. TECHNIQUE: AP lateral and swimmer's projection. FINDINGS: S-shaped curvature of the thoracolumbar spine. Mild multilevel marginal osteophyte formation and endplate sclerosis. No acute cortical disruption or gross malalignment. No lytic or blastic lesions. XR/XR thoracic spine 3V IMPRESSION: Scoliosis and spondylosis, mild to moderate. Electronically signed by: Alexei Moreno MD 08/30/2025 10:56 AM EDT Dictated By: Alexei Christina MD Signed By: <Electronically signed by Alexei Dickson MD in OV> 08/30/25 1056 DD/ 1035 TD/TT: 08/30/25 1041 Chemist Water Purification: Procedure Note Prashanthotelizabethinterpreter, Image - 08/30/[address] [address] XRay Report Signed Patient: Samm BaconMR#: [id number] 91 : 1995Acct:[id number] Age/Sex: 29 / FADM Date: 08/30/25 Loc: HO.XRAY Attending Dr: Mike Duff HELICOPTER DISPATCHER Ordering Physician: Mike Duff NP Date of Service: 08/30/25 Procedure(s): XR thoracic spine 3V Accession Number(s): [id number] cc: Mike Duff NP Reason for Exam: chronic thoracic back pain EXAMINATION: XR THORACIC SPINE CLINICAL INFORMATION: chronic thoracic back pain COMPARISON: None available. TECHNIQUE: AP lateral and swimmer's projection. FINDINGS: S-shaped curvature of the thoracolumbar spine. Mild multilevel marginal osteophyte formation and endplate sclerosis. No acute cortical disruption or gross malalignment. No lytic or blastic lesions. XR/XR thoracic spine 3V IMPRESSION: Scoliosis and spondylosis, mild to moderate. Electronically signed by: Alexei Moreno MD 08/30/2025 10:56 AM EDT Dictated By: Alexei Christina MD Signed By: <Electronically signed by Alexei Dickson MDin OV> 08/30/25 1056 DD/ 1035 TD/TT: 08/30/25 1041 Chemist Water Purification: Mike Duff VENEER PRODUCTION MACHINE OPERATOR IMG XR PROCEDURES Final R esult * Iron And Total Iron Binding Capacity (08/28/2025 9:58 AM EDT) Iron 127 30 - 160 mcg/dL [facility] Total Iron Binding Capacity 352 228 - 428 mcg/dL [facility] Percent Iron Saturation 36 15 - 50 % [facility] Unsaturated Iron Binding 225 ug/dL [facility] Blood Venous blood specimen / Unknown 08/28/2025 9:58 AM EDT 08/28/2025 2:09 PM EDT [facility] VENEER PRODUCTION MACHINE OPERATOR LAB BLOOD ORDERABLES Kortney l Result Performing Organization Address [facility] Co de Phone Number [facility] [address] [place] [phone] * Ferritin (08/28/2025 9:58 AM EDT) Ferritin 56 10 - 122 ng/mL [facility] Blood Venous blood specimen / Unknown 08/28/2025 9:58 AM EDT 08/28/2025 2:09 PM EDT [facility] LAB BLOOD ORDERABLES Kortney l Result Performing Organization Address [facility] de Phone Number [facility] [address] [place] [phone] * US Pelvis Transvaginal (08/23/2025 12:46 PM EDT) Anatomical Region Laterality Modality Pelvis Ultrasound 08/23/2025 12:4 6 PM EDT Narrative 08/23/2025 1:15 PM EDT [address] [address] Ultrasound Report Signed Patient: Samm Bacon MR#: [id number] 91 : 1995 Acct:[id number] Age/Sex: 29 / F ADM Date: 08/23/25 Loc: HO.US Attending Dr: Mike Duff HELICOPTER DISPATCHER Ordering Physician: Mike Duff NP Date of Service: 08/23/25 Procedure(s): US pelvic and transvaginal Accession Number(s): [id number] cc: Mike Duff NP Reason for Exam: [...] Alexei Moreno MD 08/23/2025 01:12 PM EDT RP Dictated By: Alexei Christina MD Signed By: <Electronically signed by Alexei Dickson MD in OV> 08/23/25 1312 DD/ 1246 TD/TT: 08/23/25 1258 Chemist Water Purification: Procedure Note Donotuseinterpreter, Image - 08/23/2025 [place] [address] Ultrasound Report Signed Patient: Samm BaconMR#: [id number] 91 : 1995Acct:[id number] Age/Sex: 29 / FADM Date: 08/23/25 Loc: HO.US Attending Dr: Mike Duff NP Ordering Physician: Mike Duff NP Date of Service: 08/23/25 Procedure(s): US pelvic and transvaginal Accession Number(s): [id number] cc: Miek Duff NP Reason for Exam: AUB EXAMINATION: [...] Alexei Moreno MD 08/23/2025 01:12 PM EDT RP Dictated By: Alexei Christina MD Signed By: <Electronically signed by Alexei Dickson MDin OV> 08/23/25 1312 DD/ 1246 TD/TT: 08/23/25 1258 Chemist Water Purification: [facility] IM US PROCEDURES Edited Result - Final * TSH W/Reflex to FT4 (08/20/2025 9:41 AM EDT) Pathologist [facility] TSH reflex Free T4 1.78 0.32 - 4.0 uIU/mL [facility] Blood Venous blood specimen / Unknown 08/20/2025 9:41 AM EDT 08/20/2025 2:40 PM EDT [facility] LAB BLOOD ORDERABLES Kortney l Result [facility] [address] [place] [phone] * (ABNORMAL) CBC auto differential (08/20/2025 9:41 AM EDT) White Blood Count 8.4 4.8 - 10.8 X10*3/uL [facility] Red Blood Count 4.13(L) 4.20 - 5.50 X10*6/uL [facility] Hemoglobin 12.1 12.0 - 16.0 g/dl [facility] Hematocrit 36.9(L) 37.0 - 47.0 % [facility] Mean Corpuscular Volume 89.3 80.0 - 98.0 fL [facility] Mean Corpuscular Hemoglobin 29.3 27.0 - 33.0 pg [facility] Mean Corpuscular HGB Conc 32.8 31.0 - 35.0 g/dl [facility] Red Cell Distribution Width 12.2 11.0 - 16.0 % [facility] Platelet Count 492(H) 160 - 400 X10*3/uL [facility] Mean Platelet Volume 10.9 9.4 - 12.3 fL [facility] Neutrophils Percent Auto 62.0 45 - 73 % [facility] Imm Gran Pct Auto 0.2 0.0 - 0.4 % [facility] Lymphocytes Percent Auto 29.4 20 - 40 % [facility] Monocytes Percent Auto 4.2 2 - 11 % [facility] Eosinophils Percent Auto 3.2 0 - 4 % [facility] Basophils Percent Auto 1.0 0 - 2 % [facility] NRBC Pct Auto 0.0 0.0 - 0.2 /100WBC [facility] Neutrophils Absolute Auto 5.2 2.0 - 8.3 x10*3/uL [facility] Imm Gran Abs Auto 0.02 0.00 - 0.03 X10*3/uL [facility] Lymphocytes Absolute Auto 2.5 1.2 - 4.9 X10*3/uL [facility] Monocytes Absolute Auto 0.4 0.1 - 1.2 X10*3/uL [facility] Eosinophils Absolute Auto 0.3 0.0 - 0.4 X10*3/uL [facility] Basophils Absolute Auto 0.1 0.0 - 0.2 X10*3/uL [facility] NRBC Abs Auto 0.000 0.0 - 0.012 X10*3/uL [facility] Blood Venous blood specimen / Unknown 08/20/2025 9:41 AM EDT 08/20/2025 2:35 PM EDT [facility] LAB BLOOD ORDERABLES Kortney l Result Performing Organization Address City/[facility] Co de Phone Number [facility] [address] [place] [phone] * Hepatitis C Antibody with Reflex to HCV, RNA, Quantitative, Real-Time PCR (08/20/2025 9:41 AM EDT) Hepatitis C Antibody Nonreactive Nonreactive [facility] Comment:Antibodies to HCV no t detected; does not exclude early acuteHCV infection. Blood Venous blood specimen / Unknown 08/20/2025 9:41 AM EDT 08/20/2025 2:35 PM EDT [facility] LAB BLOOD ORDERABLES Kortney l Result Performing Organization Address City/[facility] Co de Phone Number [facility] [address] [place] [phone] * RPR (Monitor) with Reflex to??Titer (08/20/2025 9:41 AM EDT) RPR (Monitor) w/Refl Titer NON-REACTI VE NON-REACT ALIRIO [facility] Comment:THIS TEST WAS PERFOR MED AT:[email or web address] [place] [id number] GOMEZ MD Rapid Plasma Reagin Ab Titer TNP [facility] Blood Venous blood specimen / Unknown 08/20/2025 9:41 AM EDT 08/20/2025 2:35 PM EDT [facility] LAB BLOOD ORDERABLES Kortney l Result Performing Organization Address [facility]/ZIP Co de Phone Number [facility] [address] [place] [phone] * HIV-1/2 Antigen and Antibodies, Fourth Generation, with Reflexes (08/20/2025 9:41 AM EDT) HIV AB/AG Nonreactive Nonreactive [facility] Comment:HIV-1 p24 Ag and/or HIV-1/HIV-2 Ab not detected.A test result that is nonreactive does not exclude thepossibility of exposure to or infection with HIV-1 and/orHIV-2. Nonreactive results in this assay for individualswith prior exposure to HIV-1 and/or HIV-2 may be due toantigen and antibody levels that are below the limit ofdetection of this assay.The JLGOV HIV Ag/Ab Combo assay result andsupplemental assay results should be interpreted inconjunction with the patient's clinical presentation,history and other laboratory results. If the results areinconsistent with clinical evidence, additional testing issuggested to confirm the result. Blood Venous blood specimen / Unknown 08/20/2025 9:41 AM EDT 08/20/2025 2:35 PM EDT [facility] LAB BLOOD ORDERABLES Kortney l Result Performing Organization Address [facility] Co de Phone Number [facility] [address] [place] [phone] [phone] * Lipid Panel, Standard (08/20/2025 9:41 AM EDT) Triglycerides 101 <150 mg/dL [facility] Comment:Desirable Triglyceri de: less than 150 mg/dLBorderline High Triglyceride 150-199 mg/dLHigh Triglyceride: 200-499 mg/dLVery High Triglyceride: greater than or equal to 5OO mg/dL Cholesterol 154 <200 mg/dL [facility] Comment:Desirable Cholestero l: less than 200 mg/dLBorderline High Cholesterol: 200-239 mg/dLHigh Cholesterol: greater than 239 mg/dL LDL Cholesterol Calculated 85 <100 mg/dL [facility] Comment:Desirable LDL: less than 100 mg/dLNear Optimal/Above Optimal LDL: 110- 129 mg/dLBorderline High LDL: 130-159 mg/dLHigh LDL: 160-189 mg/dLVery High LDL: greater than or equal to 190 mg/dL HDL Cholesterol 49 >40 mg/dL [facility] Comment:Desirable HDL: great er than 40 mg/dL Note: This HDL assay may give artificially low results in patients with liver disease. Blood Venous blood specimen / Unknown 08/20/2025 9:41 AM EDT 08/20/2025 2:40 PM EDT [facility] LAB BLOOD ORDERABLES Kortney l Result [facility] [address] [place], [place] [phone] * (ABNORMAL) Basic Metabolic Panel (08/20/2025 9:41 AM EDT) Sodium 138 135 - 145 mmol/L [facility] Potassium 4.2 3.3 - 5.1 mmol/L [facility] Chloride 105 96 - 108 mmol/L [facility] Carbon Dioxide 26 22 - 29 mmol/L [facility] Anion Gap 11(L) 12 - 20 [facility] Urea Nitrogen (BUN) 15 9 - 16 mg/dL [facility] Creatinine, Serum 0.58 0.5 - 1.4 mg/dL [facility] Estimated Glomerular Filt Rate >60 [facility] Comment:Chronic Kidney Disea se: Estimated GFR < 60 mL/min/1.85b2Wspusp Kidney Disease: Estimated GFR < 15 mL/min/1.73m2 Glucose 90 60 - 115 mg/dL [facility] Calcium 9.0 8.4 - 10.2 mg/dL [facility] Blood Venous blood specimen / Unknown 08/20/2025 9:41 AM EDT 08/20/2025 2:40 PM EDT [facility] VENEER PRODUCTION MACHINE OPERATOR LAB BLOOD ORDERABLES Kortney l Result [facility] [address] [place] [phone] from Last 3 Months Insurance [facility] DENTAL - [place] PARTIAL (MEDICAID) Care Teams Spiral Binder Relationship Specialty Start Date End Date Mike Duff CNP PCP - General Family Medicine 07/13/25
--- OUTSIDE RECORDS SUMMARY | 2025-08-30 12:34 | XMS_ITS | Encounter Summary ---
Author Organization [employer] Address [address] [place] [address] [place] [address] Care Team Providers Care Process Excellence Manager Name Role Phone Mike Duff CNP Primary Care Provider [phone] [phone] Reason for Visit * Reason Onset Date Comments New Patient 06/14/2025 Encounter Details Date Type Department Care Team ([facility] st Contact Info) Description 06/14/[address] [facility] [address] [place], [place] [phone] Mike Duff CNP [address] [place] [address] New Patient Social History Tobacco Use Types [...] 07/13 with [facility] DX Reported : *Caustic Room Attendant advised caller to arrive 15 minutes early [...] Description 09/12/2025 9:45 AM EST Office Visit [facility] PEDS [address] [place] [address] Mike Duff CNP [address] [place] [address] 09/21/2025 8:45 AM EST Office Visit [facility] ADULT DENTAL [address] [place] [address] Jaime Bo documented as of this encounter Visit Diagnoses Not on filedocumented in this encounter Care Teams Process Excellence Manager Relationship Specialty Start Date End Date Mike Duff CNP PCP - General Family Medicine 07/13/25 documented as of this encounter
--- OUTSIDE RECORDS SUMMARY | 2025-08-30 12:34 | XMS_ITS | Encounter Summary ---
Author Organization [employer] Address [address] [facility] [address] [place] [address] Care Team Providers Care Plate Put In Worker Name Role Phone Mike Duff CNP Primary Care Provider [phone] [phone] Reason for Visit * Reason Onset Date Comments call back requested 08/27/2025 Encounter Details Date Type Department Care Team (Late st Contact Info) Description 08/27/2025 Telephone [facility] MEDICINE [address] [place] [address] Mike Duff CNP [address] [place] [phone] call back requested Social History Tobacco Use [...] with others, in a hotel, in a fpc, living outside on the street, on a [...] bleeding at this time. Advised referral to ENGINEERING LECTURER has been sent and she will get an appointment. Advised the ENGINEERING LECTURER will do a full exam and talk to her about her options. Pt understands and agrees with plan. * Telephone Encounter - Sheryl Cameron - 08/27/2025 9:08 AM EDT Tc from requesting a call back regarding US pelvis results. PCP DR. Duff documented in this encounter Plan of Treatment Upcoming Encounters Date Type Department Care Team ([facility] st Contact Info) Description 09/12/2025 9:45 AM EST Office Visit [facility] P[facility] [address] [place] [address] Mike Duff CNP [address] [place] [address] 09/21/2025 8:45 AM EST Office Visit [facility] ADULT DENTAL [address] [place] [address] Jaime Bo documented as of this encounter Visit Diagnoses Not on filedocumented in this encounter Additional Health Concerns Assessment Noted Time PHQ-9 Depression Total Score: 1 07/13/20 11:56 AM EDT documented as of this encounter Care Teams Plate Put In Worker Relationship Specialty Start Date End Date Mike Duff CNP PCP - General Family Medicine 07/13/25 documented as of this encounter
--- OUTSIDE RECORDS SUMMARY | 2025-08-30 12:34 | XMS_ITS | Clinical Summary ---
Author Organization [employer] [facility] it Address [address] [place] [address] Care Team Providers Care Net Manager Name Role Phone Unavailable Primary Care Provider [...]
--- OUTSIDE RECORDS SUMMARY | 2025-08-30 12:34 | XMS_ITS | Encounter Summary ---
Author Organization [employer] Address [address] [place] [address] 7 [place] [address] Care Team Providers Care Retail Wireless Sales Representative Name Role Phone Mike Duff CNP Primary Care Provider [phone] [phone] Reason for Referral * Consultation (Routine) - Pending Review Specialty Diagnoses / Procedures Referred By Lissette carey Referred To Contact Obstetrics and Gynecology Diagnoses Abnormal uterine bleeding Complex cyst of right ovary Mike Duff CNP [address] [place] [address] Phone: tel: fax: Referral ID Status Reason Start Date Expiration Date Visits Requested Visits Authorized [id number] Pending Review Specialty Services Required 08/27/2026 1 1 Reason for Visit * Reason Onset Date Comments Results 08/21/2025 Encounter Details Date Type Department Care Team ([facility] st Contact Info) Description 08/21/2025 Results Follow-Up [facility] [address] [place], [place] [phone] Mike Duff CNP [address] [place], [place] [phone] Lipid Panel, Standard, CBC auto differential, Basic [...] and/or removed I can refer her to LEAD INGOT MOLDER. Thank you! ----- Message ----- From: Reji [...] and/or removed I can refer her to LEAD INGOT MOLDER. Thank you! * Telephone Encounter - Rosita [...] 09/12/2025 9:45 AM EST Office Visit [facility] MED [facility] PED[facility] [address] [place] [address] Mike Duff CNP [address] [place] [address] 09/21/2025 8:45 AM EST Office Visit [facility] ADULT DENTAL [address] [place] [address] Jaime Bo Scheduled Referrals Name Type Priority [...] documented as of this encounter Care Teams Retail Wireless Sales Representative Relationship Specialty Start Date End Date Mike Duff CNP PCP - General Family Medicine 07/13/25 documented as of this encounter
--- OUTSIDE RECORDS SUMMARY | 2025-08-30 12:34 | XMS_ITS | Clinical Summary ---
Author Organization [facility] Address [address] [place] [address] Care Team Providers Care Fruit Shipper Name Role Phone Unavailable Primary Care Provider [...]
--- OUTSIDE RECORDS SUMMARY | 2025-08-30 12:34 | XMS_ITS | Encounter Summary ---
Author Organization [employer] Address [address] [place] [address] Care Team Providers Care Mail Deliverer Name Role Phone Mike Duff CNP Primary Care Provider [phone] [phone] Encounter Details Date Type Department Care Team (Latest Contact Info) Description 08/28/2025 Travel Social History Tobacco Use Types Packs/Day Years [...] t he electric, gas, oil or water [employer] threatened to shut off services in your [...] Description 09/12/2025 9:45 AM EST Office Visit [facility] MED & PEDS [address] [place] [address] Mike Duff CNP [address] [place] [address] 09/21/2025 8:45 AM EST Office Visit [facility] ADULT DENTAL [address] [place] [address] Jaime Bo documented as of this encounter Visit Diagnoses Not on filedocumented in this encounter Additional Health Concerns Assessment Noted Time PHQ-9 Depression Total Score: 1 07/13/20 25 11:56 AM EDT documented as of this encounter Care Teams Mail Deliverer Relationship Specialty Start Date End Date Mike Duff CNP PCP - General Family Medicine 07/13/25 documented as of this encounter
== END 2025-08-30 10:22 | disposition home or self-care (01) ==
LOC: HO.XRAY 10:21
DX: M54.6 Pain in thoracic spine (principal); G89.29 Other chronic pain
CPT/HCPCS: 72072

== ENCOUNTER → 2025-08-30 10:27 | Outpatient (BNV) | payer OTHER, SELFPAY | PROVIDERS: Visit Provider Radiology Diagnostic Radiology | DX: M47.814 Spondylosis without myelopathy or radiculopathy, thoracic region (principal); M41.84 Other forms of scoliosis, thoracic region | CPT/HCPCS: 72072 ==